=== PATIENT | female | born 1965 | race Two or more races ===

== ENCOUNTER → 2016-09-18 | Outpatient (CLI) | payer BC ==
[~2016-09-18] MED LIST: CONTRAST GIVEN MC PRN; HYDR12.53 PO; IOHEXOL 300 MG/ML 100ML VIAL. IV ONE
--- NOTE | 2016-09-18 14:53 | KCIC ---
CT HEAD WITH CONTRAST INDICATION: Amblyopia TECHNIQUE: 5 mm contiguous axial images were obtained from the skull base to the vertex in both bone and soft tissue algorithm. Additional 5 mm contiguous axial images were obtained from the skull base to the vertex in both bone and soft tissue algorithm after the administration iodinated contrast. FINDINGS: No regions of abnormal intrathecal enhancement are identified. An old lacunar infarct is noted in the right cerebellar hemisphere. No evidence of intracranial hemorrhage. No mass effect or midline shift. No abnormal extra-axial fluid collections. Ventricles are normal in size and configuration. Basal cisterns are patent. Globes and orbits are within normal limits. Paranasal sinuses and mastoid air cells are clear. No fractures are seen. IMPRESSION: No acute cranial abnormality. No abnormal enhancement or mass. Old lacunar infarct in the right cerebellar hemisphere. Electronically signed by: Bigg Brooks MD (09/18/2016 2:50 PM)
== END | disposition home or self-care (01) ==
LOC: KCIC CT 13:47
PROVIDERS: ATTEND Family Medicine
DX: H53.043 Amblyopia suspect, bilateral (principal)
CPT/HCPCS: 70470; Q9967

== ENCOUNTER → 2019-06-15 | Outpatient (CLI) | payer BC ==
[~2019-06-15] MED LIST changes: -CONTRAST GIVEN MC PRN; -HYDR12.53 PO; +HYDR12.575 PO; -IOHEXOL 300 MG/ML 100ML VIAL. IV ONE
--- NOTE | 2019-06-20 08:24 | KCIC ---
Bilateral digital screening mammograms with 3-D tomosynthesis: Reason for examination: Routine screening. Comparison is made to previous study dated 01/19/2015. Bilateral mammograms in CC and oblique projections were obtained with 2-D imaging and 3-D tomosynthesis imaging on a Siemens Inspiration unit and reviewed on the workstation. Interpretation was made with the benefit of CAD. The skin and nipples show no abnormalities. No abnormal axillary lymph nodes are seen. The breast parenchyma is predominantly fatty. (Breast density: Category A.) There are no dominant masses, suspicious calcifications or architectural distortion. Benign calcifications are present. Impression: No evidence of malignancy. Recommend routine screening. BI-RAD Category 2: Benign. "Our facility is accredited by the [employer] Mammography Program." This patient's information has been entered into a reminder system for the patient to be notified with the results of her examination and a target date for the next mammogram. Electronically signed by: Fouzia Lora MD (06/20/2019 8:21 AM) [id number]
== END | disposition home or self-care (01) ==
LOC: KCIC 10:51
PROVIDERS: ATTEND Registered Nurse
DX: Z12.31 Encounter for screening mammogram for malignant neoplasm of breast (principal); N64.89 Other specified disorders of breast
CPT/HCPCS: 77063; 77067